=== PATIENT | male | born 1980 | race Two or more races ===

== ENCOUNTER 2024-12-30 23:29 | Inpatient (IN) | payer OTHER ==
[~2024-12-30] VITALS: Ht 175.3 cm; Wt 95.5 kg
[2024-12-31 02:27] LABS: PLATELET COUNT (AUTO) 263 K/uL (150-450); RED BLOOD CELL COUNT(AUTO) 5.37 MIL/uL (4.50-5.90); RED CELL DISTRIBUTION WIDTH 14.1 % (11.5-14.5); WHITE BLOOD COUNT (AUTO) 7.3 K/uL (4.5-11.0)
[2024-12-31 02:35] LABS: CALCIUM, TOTAL 8.3 mg/dL (8.8-10.5); CREATININE 0.77 mg/dL (0.60-1.30); GLOMERULAR FILTR. RATE CALC > 60 mL/min (>60); GLUCOSE,RANDOM 138 mg/dL (70-110); SODIUM SERUM 142 mmol/L (136-145); UREA NITROGEN, BLOOD 9 mg/dL (7-18)
[2024-12-31] MEDS: ACETAMINOPHEN 500 MG TABLET PO ONE (02:59)
[2024-12-31] MEDS: METOCLOPRAMIDE HCL 5 MG/ML 2 ML VIAL IVP ONE (02:59)
[2024-12-31] MEDS: SODIUM CHLORIDE 0.9% 1,000 ML IV ONE (03:00)
[2024-12-31] MEDS ORDERED: ONDANSETRON HCL 4 MG/2 ML VIAL IVP PRN (06:45)
[2024-12-31] MEDS ORDERED: LORazepam 2 MG/ML VIAL IVP PRN (06:45)
[2024-12-31] MEDS: 1: MAGNESIUM SULFATE 2 GM, MVI, ADULT NO.1 WITH VIT K 10 ML, THIAMINE 100 MG, FOLIC ACID IV SCH (07:41)
[2024-12-31] MEDS: HEPARIN SODIUM,PORCINE 5,000 UNITS/ML VIAL SQ SCH (07:52)
[2024-12-31] MEDS: DOCUSATE SODIUM 100 MG CAPSULE PO SCH (08:38)
[2024-12-31] MEDS: ACETAMINOPHEN 325 MG TABLET PO PRN (18:09)
[2024-12-31] MEDS ORDERED: DEXTROSE 50%-WATER 25 GM/50 ML SYRINGE IVP PRN (19:15)
[2024-12-31] MEDS: POTASSIUM CHLORIDE 20 MEQ ER TABLET PO ONE (21:17)
[2024-12-31] MEDS ORDERED: SODIUM CHLORIDE 0.9% 1,000 ML ONE (21:51)
[2024-12-31 21:58] VITALS: BP 111/73; PULSE 55; RESP 20; TEMP 98.2; O2SAT 96
[2024-12-31] MEDS: INSULIN LISPRO 100 UNITS/ML SQ PRN (22:05)
[2024-12-31 22:36] LABS: GLUCOMETER DEV NAME(LOC) 6N.1C; GLUCOSE,POINT OF CARE 151 MG/DL (70-110)
[2025-01-01 00:01] LABS: PH,URINE DRUG SCREEN 7.5 (5.0-8.0)
[2025-01-01 00:08] LABS: ALCOHOL, URINE DRUG SCREEN NEGATIVE (NEGATIVE); AMPHET/METH SCREEN,URINE NEGATIVE (NEGATIVE); BARBITURATE SCREEN, URINE NEGATIVE (NEGATIVE); CANNABINOID SCREEN,URINE NEGATIVE (NEGATIVE); COCAINE SCREEN,URINE POSITIVE (NEGATIVE); METHADONE SCREEN, URINE NEGATIVE (NEGATIVE)
[2025-01-01 05:15] VITALS: BP 139/91; PULSE 62; RESP 20; TEMP 98.1; O2SAT 97
[2025-01-01 06:26] LABS: CALCIUM, TOTAL 8.4 mg/dL (8.8-10.5); CREATININE 0.75 mg/dL (0.60-1.30); GLOMERULAR FILTR. RATE CALC > 60 mL/min (>60); GLUCOSE,RANDOM 109 mg/dL (70-110); SODIUM SERUM 140 mmol/L (136-145); UREA NITROGEN, BLOOD 11 mg/dL (7-18)
[2025-01-01 06:53] LABS: PLATELET COUNT (AUTO) 262 K/uL (150-450); RED BLOOD CELL COUNT(AUTO) 5.31 MIL/uL (4.50-5.90); RED CELL DISTRIBUTION WIDTH 13.8 % (11.5-14.5); WHITE BLOOD COUNT (AUTO) 7.2 K/uL (4.5-11.0)
[2025-01-01 07:40] LABS: GLUCOMETER DEV NAME(LOC) 4E.2; GLUCOSE,POINT OF CARE 117 MG/DL (70-110)
[2025-01-01 08:35] VITALS: BP 122/80; PULSE 61; RESP 18; TEMP 97.9; O2SAT 95
[2025-01-01 12:26] LABS: GLUCOMETER DEV NAME(LOC) 4E.2; GLUCOSE,POINT OF CARE 190 MG/DL (70-110)
[2025-01-01 19:16] LABS: GLUCOMETER DEV NAME(LOC) 4E.2; GLUCOSE,POINT OF CARE 115 MG/DL (70-110)
[2025-01-01 20:00] VITALS: BP 113/79; PULSE 69; RESP 18; TEMP 97.3; O2SAT 96
[2025-01-01 22:11] LABS: GLUCOMETER DEV NAME(LOC) 6N.1C; GLUCOSE,POINT OF CARE 256 MG/DL (70-110)
[2025-01-02 06:06] VITALS: BP 133/85; PULSE 72; RESP 20; TEMP 98.6; O2SAT 98
[2025-01-02 06:16] LABS: GLUCOMETER DEV NAME(LOC) 6N.1C; GLUCOSE,POINT OF CARE 111 MG/DL (70-110)
[2025-01-02 08:33] VITALS: BP 111/96; PULSE 60; RESP 18; TEMP 97.3; O2SAT 95
[2025-01-02 12:30] LABS: GLUCOMETER DEV NAME(LOC) 6S.2; GLUCOSE,POINT OF CARE 221 MG/DL (70-110)
[2025-01-02] MEDS ORDERED: EMPA10TA3 PO (14:14)
[2025-01-02] MEDS ORDERED: METF-1211 PO (14:15)
[2025-01-03] MEDS ORDERED: EMPAGLIFLOZIN 10 MG TABLET PO SCH (09:00)
== END 2025-01-02 18:09 | DRG 641 ==
LOC: EMS 23:29 → EDH 12-31 06:34 → 6N 12-31 21:39
PROVIDERS: ADMIT Internal Medicine; ATTEND Internal Medicine
DX: E87.6 Hypokalemia (principal); F10.239 Alcohol dependence with withdrawal, unspecified; E11.65 Type 2 diabetes mellitus with hyperglycemia; F41.9 Anxiety disorder, unspecified; Y90.9 Presence of alcohol in blood, level not specified
CPT/HCPCS: 80048; 80307; 82962; 83036; 83735; 85025; 96361; 96374; 99285; J1644; J2765; J3411; J3475; J3490; J7030; 36415-L1; 36415-TC